=== PATIENT | female | born 1955 | race Two or more races ===

== ENCOUNTER 2017-11-10 07:58 | Outpatient (CLI) | payer OTHER | END 2017-11-10 08:02 | disposition home or self-care (01) | LOC: SONOGRAMA 07:58 | DX: E04.1 Nontoxic single thyroid nodule (principal) ==

== ENCOUNTER 2025-02-16 09:51 | Outpatient (CLI) | payer OTHER | END 2025-02-16 09:54 | disposition home or self-care (01) | LOC: SONOGRAMA 09:51 | PROVIDERS: ATTEND Pathology Anatomic Pathology | DX: D34 Benign neoplasm of thyroid gland (principal); E07.89 Other specified disorders of thyroid; E04.2 Nontoxic multinodular goiter ==